=== PATIENT | male | born 1945 | race Caucasian/White ===

== ENCOUNTER 2018-03-16 14:15 | Outpatient (CLI) | payer MEDICARE ==
--- NOTE | 2018-03-16 15:23 | RAD ---
PA AND LATERAL CHEST: History: Cough. FINDINGS: The heart size is normal. The aorta is tortuous. The lungs are well expanded without lobar consolidat ion, pneumothoraces or pleural effusions. No acute osseous abnormalities are seen. IMPRESSION: No radiographic evidence of acute cardiopulmonary process. POS: OFF
== END 2018-03-16 14:16 | disposition home or self-care (01) ==
LOC: MADRAD 14:15
PROVIDERS: ATTEND Obstetrics & Gynecology
DX: K21.9 Gastro-esophageal reflux disease without esophagitis (principal)
CPT/HCPCS: 71046